=== PATIENT | female | born 1980 | race Caucasian/White ===

== ENCOUNTER 2017-05-20 12:08 | Emergency (ER) | payer OTHER ==
[2017-05-20 12:44] VITALS: BP 141/87
[2017-05-20] MEDS ORDERED: Ketorolac INJ* 60 MG/2 ML VIAL IM ONE (13:05)
--- NOTE | 2017-05-20 13:51 | RAD ---
HISTORY: Pain, bleeding COMPARISONS: None TECHNIQUE: Multiple transverse and longitudinal ultrasound images were obtained of the pelvis using grayscale, color Doppler, and spectral Doppler imaging using the endovaginal transducer. FINDINGS: UTERUS: The uterus measures 8.9 x 3.8 x 4.8 cm. The uterus is normal in shape, size, contour, and echotexture. ENDOMETRIUM: There is polypoid thickening of the endometrium towards the fundus measuring up to 1.2 cm.. The endometrium measures 0.6 cm in thickness. CUL-DE-SAC: There is no free fluid within the cul-de-sac. RIGHT OVARY: The right ovary measures 3.5 x 2.2 x 2.2 cm. Normal arterial and venous waveforms are identifiable within the ovary on spectral Doppler imaging. LEFT OVARY: The left ovary measures 3.3 x 2.3 x 2.6 cm. Normal arterial and venous waveforms are identifiable within the ovary on spectral Doppler imaging. There is a 1.6 cm simple cyst of the left ovary BLADDER: The bladder is not well visualized. OTHER: None IMPRESSION: 1.2 CM ENDOMETRIAL POLYP.
--- NOTE | 2017-05-20 14:09 | UC ---
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 and continued menses - History Of Current Complaint Chief Complaint: UCGeneralIllness Stated Complaint: PERSONAL Time Seen by Provider: 05/20/17 12:43 Hx Obtained From: Patient Hx Last Menstrual Period: on-going ?: No Onset/Duration: Sudden Onset, Lasting Weeks, Still Present Timing: Constant Severity Initially: Moderate Severity Currently: Moderate Pain Intensity: 7 Pain Scale Used: 0-10 Numeric Character: Cramping, Tearing Aggravating Factor(s): Nothing Alleviating Factor(s): Nothing Associated Signs And Symptoms: Positive: Vaginal Bleeding/Discharge - "continous " per patient but not now Related Hx: - 1, Para - 1 - Allergies/Home Medications Allergies/Adverse Reactions: Allergies Allergy/AdvReac Type Severity Reaction Status Date / Time No Known Allergies Allergy Verified 05/20/17 12:31 PMH/Surg Hx/FS Hx/Imm Hx Previously Healthy: No Psychological History: Anxiety, Depression - Surgical History Surgical History: None - Family History Known Family History: Positive: Other Family History: BUTTON MACHINE OPERATOR and breast cancer in first degree relative - Social History Occupation: Employed Full-time Lives: With Family Alcohol Use: None Substance Use Type: None Smoking Status (MU): Heavy Every Day Tobacco Smoker Type: Cigarettes, eCigarettes Amount Used/How Often: 1 pack daily Review of Systems Constitutional: Negative Skin: Negative Eyes: Negative ENT: Negative Respiratory: Negative Cardiovascular: Negative Gastrointestinal: Abdominal Pain Genitourinary: Negative Motor: Negative Neurovascular: Negative Musculoskeletal: Negative Neurological: Negative Psychological: Negative Is Patient Immunocompromised?: No All Other Systems Reviewed And Are Negative: Yes Physical Exam Triage Information Reviewed: Yes Appearance: Well-Appearing, No Pain Distress, Well-Nourished Vital Signs: Initial Vital Signs Temp 99 F 05/20/17 12:33 Pulse 61 05/20/17 12:33 Resp 18 05/20/17 12:33 BP 141/87 05/20/17 12:33 Pulse Ox 100 05/20/17 12:33 Vital Signs Reviewed: Yes Eye Exam: Normal Eyes: Positive: Conjunctiva Clear ENT Exam: Normal ENT: Positive: Normal ENT inspection, Hearing grossly normal. Negative: Trismus , Muffled voice, Hoarse voice Dental Exam: Normal Dental: Positive: Percussion Tenderness @, Gross Decay/Caries @ Neck exam: Normal Neck: Positive: Supple, Nontender Respiratory Exam: Normal Respiratory: Positive: No respiratory distress, No accessory muscle use Cardiovascular Exam: Normal Cardiovascular: Positive: RRR, Pulses Normal, Brisk Capillary Refill Abdominal Exam: Normal Abdomen Description: Positive: No Organomegaly, Soft. Negative: CVA Tenderness (R), CVA Tenderness (L) Bowel Sounds: Positive: Present Musculoskeletal Exam: Normal Musculoskeletal: Positive: Strength Intact, ROM Intact Neurological Exam: Normal Neurological: Positive: Alert, Muscle Tone Normal Psychological Exam: Normal Skin Exam: Normal Diagnostics - Laboratory Diagnostic Studies Completed/Ordered: US-uterine polyp Complaint Female Dx - Course Course Of Treatment: NSAIDS, follow carlos with BUTTON MACHINE OPERATOR - Differential Dx/Diagnosis Provider Diagnoses: Uterine Polyl, DUB, elevated BP without dx of hypertension, Nicotine dependent Discharge - Discharge Plan Condition: Stable Disposition: HOME Patient Education Materials: Dysfunctional Uterine Bleeding (ED) Referrals: Milla Cotto MD [Primary Care Provider] - As Soon As Possible
== END 2017-05-20 14:10 | disposition home or self-care (01) ==
LOC: UCCORT 12:08
DX: N84.0 Polyp of corpus uteri (principal); N93.8 Other specified abnormal uterine and vaginal bleeding; Z32.02 Encounter for pregnancy test, result negative; R03.0 Elevated blood-pressure reading, without diagnosis of hypertension; F41.9 Anxiety disorder, unspecified; F32.9 Major depressive disorder, single episode, unspecified; F17.210 Nicotine dependence, cigarettes, uncomplicated
CPT/HCPCS: 76830; 81003; 84702; 87086; 96372; 99211; G0463; J1885

== ENCOUNTER 2017-06-20 21:08 | Emergency (ER) | payer OTHER ==
--- NOTE | 2017-06-20 21:15 | UC ---
Hand/Wrist HPI - HPI Summary HPI Summary: 36 year old female presents with complains left hand/wrist and shoulder pain. - History Of Current Complaint Stated Complaint: LEFT HAND NUMB FROM FALL Time Seen by Provider: 06/20/17 21:15 Hx Obtained From: Patient Hx Last Menstrual Period: on-going Onset/Duration: Sudden Onset Severity Initially: Moderate Severity Currently: Moderate Pain Scale Used: 0-10 Numeric - 7 Character Of Pain: Sharp Aggravating Factor(s): Movement Alleviating Factor(s): Nothing Associated Signs And Symptoms: Positive: Negative - Allergies/Home Medications Allergies/Adverse Reactions: Allergies Allergy/AdvReac Type Severity Reaction Status Date / Time No Known Allergies Allergy Verified 06/20/17 21:19 PMH/Surg Hx/FS Hx/Imm Hx Previously Healthy: Yes - Surgical History Surgical History: None - Family History Known Family History: Positive: Other Family History: LURE MAKER and breast cancer in first degree relative - Social History Alcohol Use: None Substance Use Type: None Smoking Status (MU): Heavy Every Day Tobacco Smoker Type: Cigarettes, eCigarettes Amount Used/How Often: 1 pack daily Review of Systems Constitutional: Negative Skin: Negative Eyes: Negative ENT: Negative Respiratory: Negative Cardiovascular: Negative Gastrointestinal: Negative Genitourinary: Negative Motor: Negative Neurovascular: Negative Musculoskeletal: Other: - left wrist/hand/shoulder Neurological: Negative Psychological: Negative All Other Systems Reviewed And Are Negative: Yes Physical Exam Triage Information Reviewed: Yes Vital Signs Reviewed: Yes Eye Exam: Normal ENT Exam: Normal Dental Exam: Normal Neck exam: Normal Neck: Positive: 1 Respiratory Exam: Normal Cardiovascular Exam: Normal Abdominal Exam: Normal Musculoskeletal: Positive: Other: - left wrist/hand/shoulder pain Neurological Exam: Normal Psychological Exam: Normal Skin Exam: Normal Hand/Wrist Course/Dx - Differential Dx/Diagnosis Provider Diagnoses: left wrist pain. left hand pain. left shoulder pain Discharge - Discharge Plan Condition: Stable Disposition: HOME Referrals: Milla Cotto MD [Primary Care Provider] -
[2017-06-20 21:19] VITALS: BP 134/83
[2017-06-20] MEDS ORDERED: Ibuprofen TAB* 400 MG PO ONE (21:52)
--- NOTE | 2017-06-20 21:57 | RAD ---
INDICATION: Fall on LEFT hand and wrist. Numbness and tingling. Pain. COMPARISON: LEFT hand of the same day. TECHNIQUE: AP, lateral, and oblique views LEFT wrist. REPORT: No cortical disruption or suspicious trabecular irregularity to suggest fracture. Normal articular alignment. Unremarkable soft tissue contours. IMPRESSION: Negative for fracture or malalignment. If there is high index of suspicion for an occult scaphoid fracture repeat exam in 7 - 10 days would be suggested.
--- NOTE | 2017-06-20 21:59 | RAD ---
Indication: LEFT shoulder and upper chimney pain post fall. Comparison: August 02, 2015 Technique: Internal rotation AP, external rotation Grashey, scapular Y, axillary views LEFT shoulder Report: Normal acromioclavicular and glenohumeral joint alignment. Negative for fracture. Unremarkable soft tissue contours. IMPRESSION: Negative radiographic exam of the LEFT shoulder.
--- NOTE | 2017-06-20 22:00 | RAD ---
INDICATION: LEFT upper extremity pain and numbness/paresthesias post fall. COMPARISON: Wrist exam of the same date. TECHNIQUE: AP, lateral, and oblique views LEFT hand. REPORT: Negative for fracture or malalignment. Unremarkable soft tissue contours. IMPRESSION: No radiographic evidence for traumatic injury of the LEFT hand. Negative exam.
== END 2017-06-20 22:04 | disposition home or self-care (01) ==
LOC: UCCORT 21:08
DX: M25.532 Pain in left wrist (principal); M79.642 Pain in left hand; M25.512 Pain in left shoulder; F17.210 Nicotine dependence, cigarettes, uncomplicated; W19.XXXA Unspecified fall, initial encounter; Y92.9 Unspecified place or not applicable
CPT/HCPCS: 99213; A9270-GY; G0463

== ENCOUNTER 2018-03-19 10:19 | Emergency (ER) | payer OTHER ==
[2018-03-19 11:19] VITALS: BP 124/80
--- NOTE | 2018-03-19 12:10 | UC ---
General HPI - HPI Summary HPI Summary: Patient presents complaining of cough, chest congestion and lung tightness for the past 2 weeks. She reports is getting progressively worse. She admits to feeling short of breath with exertion and having wheezing. She denies any associated fever or chills. She denies any history of asthma or COPD but she is a smoker. - History of Current Complaint Chief Complaint: UCRespiratory Stated Complaint: SA,COUGH,CONGESTION,HANDS NUMB Time Seen by Provider: 03/19/18 11:54 Hx Obtained From: Patient Hx Last Menstrual Period: unknown Onset/Duration: Gradual Onset Timing: Constant Pain Intensity: 0 Associated Signs & Symptoms: Positive: Cough, SOB, Wheezing. Negative: Fever - Allergy/Home Medications Allergies/Adverse Reactions: Allergies Allergy/AdvReac Type Severity Reaction Status Date / Time No Known Allergies Allergy Verified 03/19/18 11:17 PMH/Surg Hx/FS Hx/Imm Hx Psychological History: Anxiety, Depression - Surgical History Surgical History: None - Family History Known Family History: Positive: Other Family History: LIBRARY ASSISTANT and breast cancer in first degree relative - Social History Occupation: Unemployed Lives: With Family Alcohol Use: None Substance Use Type: None Smoking Status (MU): Heavy Every Day Tobacco Smoker Type: Cigarettes, eCigarettes Amount Used/How Often: 1 pack daily - Immunization History Vaccination Up to Date: Yes Review of Systems Constitutional: Negative Skin: Negative Eyes: Negative ENT: Negative Respiratory: Shortness Of Breath, Cough Cardiovascular: Negative Gastrointestinal: Negative Genitourinary: Negative Motor: Negative Neurovascular: Negative Musculoskeletal: Negative Neurological: Negative Psychological: Negative Is Patient Immunocompromised?: No All Other Systems Reviewed And Are Negative: Yes Physical Exam Triage Information Reviewed: Yes Appearance: Well-Appearing Vital Signs: Initial Vital Signs Temp 98.9 F 03/19/18 11:16 Pulse 97 03/19/18 11:16 Resp 18 03/19/18 11:16 BP 124/80 03/19/18 11:16 Pulse Ox 100 03/19/18 11:16 Eyes: Positive: Conjunctiva Clear ENT: Positive: Pharynx normal, TMs normal. Negative: Nasal congestion, Nasal drainage Neck: Positive: Supple, Nontender, No Lymphadenopathy Respiratory: Positive: Lungs clear, No respiratory distress, Decreased breath sounds, Wheezing - OCCASIONAL. COUGH IS CONGESTED. Cardiovascular: Positive: RRR, No Murmur Abdomen Description: Positive: Nontender, No Organomegaly, Soft Bowel Sounds: Positive: Present Musculoskeletal: Positive: ROM Intact Neurological: Positive: Alert Psychological: Positive: Normal Response To Family, Age Appropriate Behavior Skin Exam: Normal Course/Dx - Course Course Of Treatment: Patient is nontoxic and non-hypoxic. I have no concern for pneumonia; however, she has been ill for 2 weeks and is becoming progressively worse plus and going to cover her with DayQuil and a Zithromax Tri -Ayo for secondary bacterial infection as well as an inhaler for bronchospasm. - Differential Dx - Multi-Symptom Provider Diagnoses: Cough. Bronchospasm. Discharge - Sign-Out/Discharge Documenting (check all that apply): Patient Departure All imaging exams completed and their final reports reviewed: No Studies - Discharge Plan Condition: Stable Disposition: HOME Prescriptions: Albuterol HFA INHALER* [Ventolin HFA Inhaler*] 2 puff INH Q6H #1 mdi Azithromycin 500 mg PO DAILY #3 tab Patient Education Materials: Bronchospasm (ED), Acute Cough (ED) Referrals: EVELINE Rivas [Medical Doctor] - 7 Days - Billing Disposition and Condition Condition: STABLE Disposition: Home
== END 2018-03-19 12:37 | disposition home or self-care (01) ==
LOC: UCCORT 10:19
DX: J98.01 Acute bronchospasm (principal)
CPT/HCPCS: 99212; G0463

== ENCOUNTER 2019-04-30 18:12 | Emergency (ER) | payer OTHER ==
[2019-04-30 18:30] VITALS: BP 119/80
[2019-04-30] MEDS ORDERED: Tetan/Diph/Pertus SYR(Tdap)* 0.5 ML SYR(BOOSTRIX) use SYR contains LATEX IM ONE (18:40)
--- NOTE | 2019-04-30 18:45 | UC ---
Bite Injury/Animal HPI - HPI Summary HPI Summary: Pt presents with c/o cat bite to right index finger that happened today. Pt was chasing unknown cat and was bit. - History of Current Complaint Chief Complaint: UCSkin Stated Complaint: CAT BITE Time Seen by Provider: 04/30/19 18:25 Hx Obtained From: Patient Hx Last Menstrual Period: 04/17/19 ?: No Severity Currently: Mild Severity Initially: Mild Pain Intensity: 4 Onset/Duration: Sudden Onset Type of Bite: Animal - cat Character: Puncture Aggravating Factor(s): Other - palpation Alleviating Factor(s): Rest Associated Signs And Symptoms: Positive: Negative Hx of Bite: Provoked by: - pt was chasing cat Animal Available for Observation: No - Risk Factors Infection/Sepsis Risk Factors: Negative - Allergies/Home Medications Allergies/Adverse Reactions: Allergies Allergy/AdvReac Type Severity Reaction Status Date / Time No Known Allergies Allergy Verified 04/30/19 18:24 Home Medications: Home Medications Naproxen Sodium [Aleve] 2 tab PO ONCE 04/30/19 [History Confirmed 04/30/19] PMH/Surg Hx/FS Hx/Imm Hx Previously Healthy: Yes - Surgical History Surgical History: None - Family History Known Family History: Positive: Other Family History: WRINGER AND SETTER and breast cancer in first degree relative - Social History Occupation: Unemployed Lives: With Family Alcohol Use: None Alcohol Amount: states none in 6 years Substance Use Type: None Smoking Status (MU): Heavy Every Day Tobacco Smoker Type: Cigarettes, eCigarettes Amount Used/How Often: 1 pack daily Have You Smoked in the Last Year: Yes - Immunization History Vaccination Up to Date: No Review of Systems All Other Systems Reviewed And Are Negative: Yes Constitutional: Positive: Negative Skin: Positive: Other - 2 puncture wounds from cat bite right index finger dorsal and anterior aspect of distal right index finger Eyes: Positive: Negative ENT: Positive: Negative Respiratory: Positive: Negative Cardiovascular: Positive: Negative Gastrointestinal: Positive: Negative Genitourinary: Positive: Negative Motor: Positive: Negative Neurovascular: Positive: Negative Musculoskeletal: Positive: Myalgia - at cat bite site Neurological: Positive: Negative Psychological: Positive: Negative Is Patient Immunocompromised?: No Physical Exam Triage Information Reviewed: Yes Appearance: Well-Appearing Vital Signs: Initial Vital Signs Temp 98.7 F 04/30/19 18:25 Pulse 69 04/30/19 18:25 Resp 18 04/30/19 18:25 BP 119/80 04/30/19 18:25 Pulse Ox 100 04/30/19 18:25 Vital Signs Reviewed: Yes Eye Exam: Normal ENT: Positive: Hearing grossly normal Neck exam: Normal Respiratory: Positive: No respiratory distress Musculoskeletal Exam: Normal Musculoskeletal: Positive: Strength Intact, ROM Intact Neurological Exam: Normal Psychological Exam: Normal Skin Exam: Other - one puncture wound on distal right index finger on lateral anterior and posterior aspect of finger Diagnostics - Radiology No standard instances Radiology Interpretation Completed By: ED Physician - negative for fracture and FB Bite Injury Course/Dx - Course Course Of Treatment: I discussed with the pt the need to follow up with regard to possible rabies exposure. Pt verbalized understanding and agreed to plan of care. - Differential Dx/Diagnosis Differential Diagnosis/HQI/PQRI: Puncture, Rabies Exposure Provider Diagnosis: Cat bite of finger Discharge ED - Sign-Out/Discharge Documenting (check all that apply): Patient Departure All imaging exams completed and their final reports reviewed: No - Discharge Plan Condition: Stable Disposition: HOME Prescriptions: Amoxicillin/Clavulanate TAB* [Augmentin TAB 500 mg*] 500 mg PO Q8H #21 tab Patient Education Materials: Animal Bite (ED) Referrals: Ora Kuhn MD [Primary Care Provider] - If Needed Additional Instructions: Please follow up with your PCP and follow up as directed regarding rabies concern. - Billing Disposition and Condition Condition: STABLE Disposition: Home
--- NOTE | 2019-05-01 07:07 | UC ---
- Progress Note Progress Note: wet read correct Course/Dx - Diagnoses Provider Diagnoses: Cat bite of finger Discharge ED - Sign-Out/Discharge Documenting (check all that apply): Post-Discharge Follow Up All imaging exams completed and their final reports reviewed: Yes - Discharge Plan Condition: Stable Disposition: HOME Prescriptions: Amoxicillin/Clavulanate TAB* [Augmentin TAB 500 mg*] 500 mg PO Q8H #21 tab Patient Education Materials: Animal Bite (ED) Referrals: Ora Kuhn MD [Primary Care Provider] - If Needed Additional Instructions: Please follow up with your PCP and follow up as directed regarding rabies concern. - Billing Disposition and Condition Condition: STABLE Disposition: Home
== END 2019-04-30 19:14 | disposition home or self-care (01) ==
LOC: UCCORT 18:12
DX: S61.250A Open bite of right index finger without damage to nail, initial encounter (principal); F17.210 Nicotine dependence, cigarettes, uncomplicated; Z23 Encounter for immunization; W55.01XA Bitten by cat, initial encounter; Y92.9 Unspecified place or not applicable
CPT/HCPCS: 73140; 90471; 90715; 99212; G0463